=== PATIENT | female | born 1975 | race Caucasian/White ===

== ENCOUNTER 2020-08-14 22:04 | Emergency (ER) | payer OTHER ==
[2020-08-14] MEDS ORDERED: Ondansetron 4 MG/2 ML SDV IVPUSH ONE (22:17)
[2020-08-14] MEDS ORDERED: Sodium Chloride 0.9% 2.5 ML Syringe FLUSH PRN (22:17)
[2020-08-14] MEDS ORDERED: Sodium Chloride 0.9% 1,000 ML IV ONE (22:17)
[2020-08-14] MEDS ORDERED: Ketorolac 15 MG/ML SDV IVPUSH ONE (22:17)
[2020-08-14] MEDS ORDERED: Sodium Chloride 0.9% 10 ML Syringe FLUSH PRN (22:17)
[2020-08-14] MEDS ORDERED: Metoclopramide 10 MG/2 ML SDV IVPUSH ONE (22:27)
[2020-08-14] MEDS ORDERED: diphenhydrAMINE 50 MG/ML SDV IVPUSH ONE (22:28)
--- NOTE | 2020-08-14 22:31 | EDM.PDOC ---
ED HPI GENERAL MEDICAL PROBLEM - General Chief Complaint: Gastrointestinal Problem Stated Complaint: headaches, vomitting Time Seen by Provider: 08/14/20 22:17 Source of Information: Reports: Patient - History of Present Illness INITIAL COMMENTS - FREE TEXT/NARRATIVE: History of present illness: 44-year-old female presenting with headache, nausea and vomiting for the last 2 days. Apparently she started 5 days ago with a small sniffle that went away after couple days but then 2 days ago she started to have severe headache, loss of smell and taste and nausea and vomiting. She has vomited already 3 times today and feels like she cannot keep anything down. She is a teacher. She was concerned she may have COVID but felt too ill to get out of bed and get into a testing facility. She has not had any diarrhea or abdominal pain. No cough or difficulty breathing or chest pain. She has not had any measured fevers. Review of systems: As per history of present illness and below otherwise all systems reviewed and negative. Past medical history: As per history of present illness and as reviewed below otherwise noncontributory. Surgical history: As per history of present illness and as reviewed below otherwise noncontributory. Inguinal hernia repair Social history: No reported history of drug or alcohol abuse. Occasional alcohol. Never smoker Family history: As per history of present illness and as reviewed below otherwise noncontributory. Physical exam: GEN: Moderate distress due to pain, well appearing HEENT: Atraumatic, normocephalic, mucous membranes moist, Neck: supple, nontender, trachea midline. Lungs: No respiratory distress. Heart: RRR Abdomen: Soft, nondistended, nontender. Back: nontender Extremities: Atraumatic. Neurovascularly intact. Neuro: Awake, alert, oriented. Neuro Exam nonfocal. Skin: warm, dry, no lesions Diagnostics: Labs, COVID swab Therapeutics: Toradol, Reglan, Benadryl, IV fluids, Zofran, Pepcid, GI cocktail MDM: Impression: [] Plan: [] Definitive disposition and diagnosis as appropriate pending reevaluation and review of above. headache Pain Score (Numeric/FACES): 5 - Related Data Allergies Allergy/AdvReac Type Severity Reaction Status Date / Time codeine Allergy Nausea Verified 08/14/20 22:12 Home Meds: Home Meds Desvenlafaxine [Desvenlafaxine ER] 100 mg PO DAILY 08/14/20 [History] Ondansetron [Zofran ODT] 4 mg PO Q6H PRN #20 tab.dis 08/15/20 [Rx] Past Medical History - Past Health History Medical/Surgical History: Denies Medical/Surgical History Psychiatric History: Reports: Depression - Infectious Disease History Infectious Disease History: Reports: Chicken Pox Social & Family History - Family History Family Medical History: Noncontributory - Tobacco Use Smoking Status *Q: Never Smoker - Recreational Drug Use Recreational Drug Use: No ED ROS GENERAL - Review of Systems Review Of Systems: See Below (See HPI) ED EXAM, GI/ABD - Physical Exam Exam: See Below (See HPI) Course - Vital Signs Text/Narrative:: Patient with headache, nausea, vomiting, dehydration. She does work as a teacher and potentially has a risk of exposure to COVID. COVID swab here positive. No dyspnea. O2 saturation 99% on room air. hCG negative. Remainder of labs unremarkable. After several rounds of antiemetics and Toradol, IV fluids, Pepcid, and GI cocktail, the patient was feeling much better and was able to tolerate p.o. crackers and soda. Feeling well enough to go home. Will discharge. Last Recorded V/S: Last Vital Signs Temp 96.6 F L 08/14/20 22:09 Pulse 69 08/15/20 03:33 Resp 14 08/15/20 03:33 BP 113/73 08/15/20 03:33 Pulse Ox 98 08/15/20 03:33 - Orders/Labs/Meds Orders: Active Orders 24 hr Category Date Time Status Sodium Chloride 0.9% [Normal Saline] 1,000 ml Med 08/15/20 01:15 Active IV ASDIRECTED Sodium Chloride 0.9% [Saline Flush] Med 08/14/20 22:17 Active 10 ml FLUSH ASDIRECTED PRN Sodium Chloride 0.9% [Saline Flush] Med 08/14/20 22:17 Active 2.5 ml FLUSH ASDIRECTED PRN Saline Lock Insert [OM.PC] Stat Oth 08/14/20 22:17 Ordered Medication Orders Sodium Chloride (Normal Saline) 1,000 mls @ 999 mls/hr IV ASDIRECTED BERNY Last Admin: 08/15/20 01:34 Dose: 999 mls/hr Documented by: CHUCKWKRI Sodium Chloride (Saline Flush) 10 ml FLUSH ASDIRECTED PRN PRN Reason: Keep Vein Open Sodium Chloride (Saline Flush) 2.5 ml FLUSH ASDIRECTED PRN PRN Reason: Keep Vein Open Labs: Laboratory Tests 08/14/20 08/14/20 08/14/20 Range/Units 23:05 23:10 23:10 WBC 6.86 (4.0-11.0) K/uL RBC 4.30 (4.30-5.90) M/uL Hgb 13.0 (12.0-16.0) g/dL Hct 38.0 (36.0-46.0) % MCV 88.4 (80.0-98.0) fL MCH 30.2 (27.0-32.0) pg MCHC 34.2 (31.0-37.0) g/dL RDW Std Deviation 36.8 (28.0-62.0) fl RDW Coeff of Lamin 12 (11.0-15.0) % Plt Count 223 (150-400) K/uL MPV 11.10 (7.40-12.00) fL Neut % (Auto) 71.2 (48.0-80.0) % Lymph % (Auto) 21.3 (16.0-40.0) % [place] % (Auto) 7.4 (0.0-15.0) % Eos % (Auto) 0.0 (0.0-7.0) % Baso % (Auto) 0.1 (0.0-1.5) % Neut # (Auto) 4.9 (1.4-5.7) K/uL Lymph # (Auto) 1.5 (0.6-2.4) K/uL [place] # (Auto) 0.5 (0.0-0.8) K/uL Eos # (Auto) 0.0 (0.0-0.7) K/uL Baso # (Auto) 0.0 (0.0-0.1) K/uL Add Manual Diff Sodium 139 (136-145) mmol/L Potassium 3.5 (3.5-5.1) mmol/L Chloride 105 (98-107) mmol/L Carbon Dioxide 24.1 (21.0-32.0) mmol/L BUN 10 (7.0-18.0) mg/dL Creatinine 0.8 (0.6-1.0) mg/dL Est Cr Clr Drug Dosing 95.12 mL/min Estimated GFR (MDRD) > 60.0 ml/min Glucose 117 H (74-106) mg/dL Calcium 8.7 (8.5-10.1) mg/dL Total Bilirubin 0.3 (0.2-1.0) mg/dL AST 16 (15-37) IU/L ALT 21 (14-63) IU/L Alkaline Phosphatase 66 (46-116) U/L Total Protein 7.4 (6.4-8.2) g/dL Albumin 3.8 (3.4-5.0) g/dL Globulin 3.6 (2.6-4.0) g/dL Albumin/Globulin Ratio 1.1 (0.9-1.6) Lipase 82 (73-393) U/L HCG, Qual (NEG) Urine Color Urine Appearance Urine pH (5.0-8.0) Ur Specific [place] (1.001-1.035) Urine Protein (NEGATIVE) mg/dL Urine Glucose (UA) (NEGATIVE) mg/dL Urine Ketones (NEGATIVE) mg/dL Urine Occult Blood (NEGATIVE) Urine Nitrite (NEGATIVE) Urine Bilirubin (NEGATIVE) Urine Urobilinogen (<2.0) EU/dL Ur Leukocyte Esterase (NEGATIVE) COVID-19 (SHEILA) POSITIVE H (NEGATIVE) 08/14/20 08/15/20 Range/Units 23:10 01:30 WBC (4.0-11.0) K/uL RBC (4.30-5.90) M/uL Hgb (12.0-16.0) g/dL Hct (36.0-46.0) % MCV (80.0-98.0) fL MCH (27.0-32.0) pg MCHC (31.0-37.0) g/dL RDW Std Deviation (28.0-62.0) fl RDW Coeff of [place] (11.0-15.0) % Plt Count (150-400) K/uL MPV (7.40-12.00) fL Neut % (Auto) (48.0-80.0) % Lymph % (Auto) (16.0-40.0) % [place] % (Auto) (0.0-15.0) % Eos % (Auto) (0.0-7.0) % Baso % (Auto) (0.0-1.5) % Neut # (Auto) (1.4-5.7) K/uL Lymph # (Auto) (0.6-2.4) K/uL [place] # (Auto) (0.0-0.8) K/uL Eos # (Auto) (0.0-0.7) K/uL Baso # (Auto) (0.0-0.1) K/uL Add Manual Diff Sodium (136-145) mmol/L Potassium (3.5-5.1) mmol/L Chloride (98-107) mmol/L Carbon Dioxide (21.0-32.0) mmol/L BUN (7.0-18.0) mg/dL Creatinine (0.6-1.0) mg/dL Est Cr Clr Drug Dosing mL/min Estimated GFR (MDRD) ml/min Glucose (74-106) mg/dL Calcium (8.5-10.1) mg/dL Total Bilirubin (0.2-1.0) mg/dL AST (15-37) IU/L ALT (14-63) IU/L Alkaline Phosphatase (46-116) U/L Total Protein (6.4-8.2) g/dL Albumin (3.4-5.0) g/dL Globulin (2.6-4.0) g/dL Albumin/Globulin Ratio (0.9-1.6) Lipase (73-393) U/L HCG, Qual NEGATIVE (NEG) Urine Color YELLOW Urine Appearance CLEAR Urine pH 6.0 (5.0-8.0) Ur Specific [place] 1.015 (1.001-1.035) Urine Protein NEGATIVE (NEGATIVE) mg/dL Urine Glucose (UA) NEGATIVE (NEGATIVE) mg/dL Urine Ketones 15 H (NEGATIVE) mg/dL Urine Occult Blood NEGATIVE (NEGATIVE) Urine Nitrite NEGATIVE (NEGATIVE) Urine Bilirubin NEGATIVE (NEGATIVE) Urine Urobilinogen 0.2 (<2.0) EU/dL Ur Leukocyte Esterase NEGATIVE (NEGATIVE) COVID-19 (SHEILA) (NEGATIVE) Meds: Medications Generic Name Dose Route Start Last Admin Trade Name Freq PRN Reason Stop Dose Admin Sodium Chloride 1,000 mls @ 999 mls/hr 08/15/20 01:15 08/15/20 01:34 Normal Saline IV 999 mls/hr ASDIRECTED BERNY Administration Sodium Chloride 10 ml 08/14/20 22:17 Saline Flush FLUSH ASDIRECTED PRN Keep Vein Open Sodium Chloride 2.5 ml 08/14/20 22:17 Saline Flush FLUSH ASDIRECTED PRN Keep Vein Open Discontinued Medications Generic Name Dose Route Start Last Admin Trade Name Freq PRN Reason Stop Dose Admin Al Hydroxide/Mg Hydroxide 15 0 ml 08/15/20 02:12 08/15/20 03:01 ml/ Lidocaine HCl 5 ml PO 08/15/20 02:13 1 each ONETIME ONE Administration Diphenhydramine HCl 50 mg 08/14/20 22:28 08/14/20 23:13 Benadryl IVPUSH 08/14/20 22:29 50 mg ONETIME ONE Administration Famotidine 20 mg 08/15/20 02:46 08/15/20 02:59 Pepcid IVPUSH 08/15/20 02:47 20 mg ONETIME ONE Administration Sodium Chloride 1,000 mls @ 999 mls/hr 08/14/20 22:17 08/14/20 23:10 Normal Saline IV 08/14/20 23:17 999 mls/hr .Bolus ONE Administration Ketorolac Tromethamine 15 mg 08/14/20 22:17 08/14/20 23:12 Toradol IVPUSH 08/14/20 22:18 15 mg ONETIME ONE Administration Ketorolac Tromethamine 15 mg 08/15/20 02:12 08/15/20 03:01 Toradol IVPUSH 08/15/20 02:13 15 mg ONETIME ONE Administration Metoclopramide HCl 10 mg 08/14/20 22:27 08/14/20 23:11 Reglan IVPUSH 08/14/20 22:28 10 mg ONETIME ONE Administration Ondansetron HCl 4 mg 08/14/20 22:17 08/15/20 01:25 Zofran IVPUSH 08/14/20 22:18 Not Given ONETIME ONE Ondansetron HCl 4 mg 08/15/20 01:06 08/15/20 01:36 Zofran IVPUSH 08/15/20 01:07 4 mg ONETIME ONE Administration Ondansetron HCl 4 mg 08/15/20 02:12 08/15/20 02:58 Zofran IVPUSH 08/15/20 02:13 4 mg ONETIME ONE Administration - Re-Assessments/Exams Free Text/Narrative Re-Assessment/Exam: 08/15/20 01:07 Patient reports that she initially felt better but now still feeling nauseated again. Will give Zofran and IV fluids. 08/15/20 02:13 Patient reports that she is still feeling nauseated although she has been able to drink some soda and eat some crackers and keep it down. She still has about three quarters of a liter of fluids left. Will give additional dose of Zofran, Toradol, and a GI cocktail and reassess her symptoms. Oxygen saturation is still 99% on room air with no respiratory distress. I did discuss with the patient clinically based on lab work she would likely not need admission, however if she is unable to control her nausea and unable to keep down food or fluids p.o., she may need admission. We will continue to attempt better nausea control and reassess the patient for final determination of admission versus discharge. 08/15/20 04:19 The patient is now feeling much better and feels well enough to be discharged at this time. Departure - Departure Time of Disposition: 04:20 Disposition: Home, Self-Care 01 Clinical Impression: COVID-19 - Discharge Information Prescriptions: Ondansetron [Zofran ODT] 4 mg PO Q6H PRN #20 tab.dis PRN Reason: Nausea/Vomiting Instructions: COVID-19 Frequently Asked Questions, Nausea and Vomiting, Adult, [id number], Dehydration, Adult, [id number], COVID-19: How to Protect Yourself and Others - CDC, Prevent the Spread of COVID-19 if You Are Sick - CDC Referrals: PCP,None [Primary Care Provider] - Forms: ED Department Discharge, ED Return to Work/School Form Additional Instructions: You have coronavirus. The self isolate for 14 days and do not go to work or go anywhere else outside of your house. If you develop severe breathing difficulties please return to the emergency department immediately. A prescription has been sent for Zofran, the nausea medication that you received here today. Please rest and drink plenty of fluids. Once you are feeling better after 10 to 14 days, please follow-up with your primary care physician. The following information is given to patients seen in the emergency department who are being discharged to home. This information is to outline your options for follow-up care. We provide all patients seen in our emergency department with a follow-up referral. The need for follow-up, as well as the timing and circumstances, are variable depending upon the specifics of your emergency department visit. If you don't have a primary care physician on staff, we will provide you with a referral. We always advise you to contact your personal physician following an emergency department visit to inform them of the circumstance of the visit and for follow-up with them and/or the need for any referrals to a consulting specialist. The emergency department will also refer you to a specialist when appropriate. This referral assures that you have the opportunity for follow-up care with a specialist. All of these measure are taken in an effort to provide you with optimal care, which includes your follow-up. Under all circumstances we always encourage you to contact your private physician who remains a resource for coordinating your care. When calling for follow-up care, please make the office aware that this follow-up is from your recent emergency room visit. If for any reason you are refused follow-up, please contact the [facility] Emergency Department at and asked to speak to the emergency department charge nurse. [facility] [address] [place] [address] [place] [address] Sepsis Event Note (ED) - Evaluation Sepsis Screening Result: No Definite Risk - Focused Exam Vital Signs: Vital Signs Temp Pulse Resp BP Pulse Ox 08/15/20 03:33 69 14 113/73 98 08/15/20 01:32 78 16 113/74 98 08/15/20 00:00 76 14 121/76 99 08/14/20 22:17 82 16 112/73 98 08/14/20 22:09 96.6 F L 89 18 128/81 99 - My Orders Last 24 Hours: My Active Orders 08/14/20 22:17 Sodium Chloride 0.9% [Saline Flush] 10 ml FLUSH ASDIRECTED PRN Sodium Chloride 0.9% [Saline Flush] 2.5 ml FLUSH ASDIRECTED PRN Saline Lock Insert [OM.PC] Stat 08/15/20 01:15 Sodium Chloride 0.9% [Normal Saline] 1,000 ml IV ASDIRECTED - Assessment/Plan Last 24 Hours: My Active Orders 08/14/20 22:17 Sodium Chloride 0.9% [Saline Flush] 10 ml FLUSH ASDIRECTED PRN Sodium Chloride 0.9% [Saline Flush] 2.5 ml FLUSH ASDIRECTED PRN Saline Lock Insert [OM.PC] Stat 08/15/20 01:15 Sodium Chloride 0.9% [Normal Saline] 1,000 ml IV ASDIRECTED
[2020-08-14 23:39] LABS: BLOOD UREA NITROGEN,BUN 10 mg/dL (7.0-18.0); CARBON DIOXIDE,CO2 24.1 mmol/L (21.0-32.0); CHLORIDE,CL 105 mmol/L (98-107); GLUCOSE RANDOM 117 mg/dL (74-106); LIPASE 82 U/L (73-393); POTASSIUM,K 3.5 mmol/L (3.5-5.1); SODIUM,NA 139 mmol/L (136-145)
[2020-08-15] MEDS ORDERED: Ondansetron 4 MG/2 ML SDV IVPUSH ONE ×2 (01:06→02:12)
[2020-08-15] MEDS ORDERED: Sodium Chloride 0.9% 1,000 ML IV SCH (01:15)
[2020-08-15] MEDS ORDERED: Ketorolac 30 MG/ML SDV IVPUSH ONE (02:12)
[2020-08-15] MEDS ORDERED: Alum Hydrox/Mag Hydrox/Simeth 15 ML, Lidocaine 2% 5 ML PO ONE ×2 (02:12)
[2020-08-15] MEDS ORDERED: Famotidine 20 MG/2 ML SDV IVPUSH ONE (02:46)
== END 2020-08-15 04:20 | disposition home or self-care (01) ==
LOC: MW.ED 22:04
DX: U07.1 COVID-19 (principal); F32.9 Major depressive disorder, single episode, unspecified; Z88.5 Allergy status to narcotic agent; Z79.899 Other long term (current) drug therapy
CPT/HCPCS: 36415; 80053; 81003; 83690; 84703; 85025; 87635; 96361; 96374; 96375; 96376; 99284; A9270; J1200; J1885; J2405; J2765; J3490; J7030; U0002